=== PATIENT | female | born 1950 | race Caucasian/White ===

== ENCOUNTER 2016-10-17 12:27 | Emergency (ER) | payer MEDICARE ==
--- NOTE | 2016-10-17 14:13 | UC ---
Respiratory Complaint HPI - HPI Summary HPI Summary: 2 DAYS OF PRODUCTIVE COUGH, CHEST CONGESTION AND WHEEZE. DOES NOT FEEL PARTICULARLY SOB. STILL SMOKES. DOES NOT HAVE ANY INHALERS AT HOME. CONCERNED ABOUT PNA. NO FEVER. - History of Current Complaint Chief Complaint: UCRespiratory Stated Complaint: CHEST CONGESTION Time Seen by Provider: 10/17/16 14:03 Hx Obtained From: Patient Onset/Duration: Gradual Onset, Lasting Days, Still Present Timing: Constant Severity Initially: Moderate Severity Currently: Moderate Pain Intensity: 0 Pain Scale Used: 0-10 Numeric Character: Cough: Productive Aggravating Factors: Recumbent Position Alleviating Factors: Bronchodilator Associated Signs And Symptoms: Positive: Wheezing, Nasal Congestion. Negative: Fever, Chills, Pleuritic Chest Pain - Allergies/Home Medications Allergies/Adverse Reactions: Allergies Allergy/AdvReac Type Severity Reaction Status Date / Time No Known Allergies Allergy Verified 10/17/16 12:54 Home Medications: Home Medications Anastrozole (NF) [Arimidex (NF)] 1 mg PO DAILY 10/17/16 [History Confirmed 10/17] Aspirin EC Low Dose* [Ecotrin EC Low Dose 81 MG*] 81 mg PO DAILY 10/17/16 [ History Confirmed 10/17/16] Atorvastatin* [Lipitor 80 MG*] 80 mg PO DAILY 10/17/16 [History Confirmed ] Clopidogrel TAB* [Plavix TAB*] 40 mg PO DAILY 10/17/16 [History Confirmed ] Gabapentin CAP(*) [Neurontin 300 CAP(*)] 300 mg PO BID 10/17/16 [History Confirmed 10/17/16] Garlic 350 mg PO DAILY 10/17/16 [History Confirmed 10/17/16] Hydrochlorothiazide TAB* [Hydrodiuril TAB*] 12.5 mg PO DAILY 10/17/16 [History Confirmed 10/17/16] Insulin GLARGINE(*) [Lantus(*)] 40 units SUBCUT BEDTIME 10/17/16 [History Confirmed 10/17/16] Levothyroxine TAB* [Synthroid 100 MCG TAB*] 200 mcg PO DAILY 10/17/16 [History Confirmed 10/17/16] [place]-3 Fatty Acids [Fish Oil 1200 mg] 1 tab PO DAILY 10/17/16 [History Confirmed 10/17/16] Sitaglip/XodethlKI963/1000(NR) [Janumet XR 100/1000 (NF)] 1 tab PO DAILY [History Confirmed 10/17/16] amLODIPine TAB* [Norvasc 5 mg TAB*] 10 mg PO DAILY 10/17/16 [History Confirmed 10/17/16] metFORMIN* [Glucophage 1000 MG TAB *] 1,000 mg PO DAILY 10/17/16 [History Confirmed 10/17/16] PMH/Surg Hx/FS Hx/Imm Hx Endocrine History: Diabetes Cardiovascular History: Hypertension Cancer History: Breast Cancer Other Cancer History: THYROID CANCER - Surgical History Surgical History: Yes Surgery Procedure, Year, and Place: x2. Gallbladder removal - Family History Known Family History: Positive: Hypertension - Social History Alcohol Use: None Substance Use Type: None Smoking Status (MU): Heavy Every Day Tobacco Smoker Amount Used/How Often: 1/2ppd Review of Systems Constitutional: Negative ENT: Nasal Discharge Respiratory: Cough Cardiovascular: Negative Gastrointestinal: Negative All Other Systems Reviewed And Are Negative: Yes Physical Exam Triage Information Reviewed: Yes Appearance: Well-Appearing, No Pain Distress, Well-Nourished Vital Signs: Initial Vital Signs Temp 98.2 F 10/17/16 12:48 Pulse 115 10/17/16 12:48 Resp 18 10/17/16 12:48 BP 174/84 10/17/16 12:48 Pulse Ox 95 10/17/16 12:48 Vital Signs Reviewed: Yes Eyes: Positive: Conjunctiva Clear ENT: Positive: Hearing grossly normal, Pharynx normal, TMs normal Neck: Positive: Supple, Nontender, No Lymphadenopathy Respiratory: Positive: No respiratory distress, No accessory muscle use, Decreased breath sounds, Wheezing - DIFFUSELY Cardiovascular: Positive: Tachycardia Abdomen Description: Positive: Soft Musculoskeletal: Positive: No Edema Neurological: Positive: Alert Psychological: Positive: Age Appropriate Behavior Skin: Negative: rashes UC Diagnostic Evaluation - Laboratory O2 Sat by Pulse Oximetry: 95 Re-Evaluation - Re-Evaluation First Eval Re-Evaluation Time: 15:00 - MUCH IMPROVED AFTER DUONEB Change: Improved Respiratory Course/Dx - Differential Dx/Diagnosis Provider Diagnoses: BRONCHITIS WITH BRONCHOSPASM Discharge - Discharge Plan Condition: Stable Disposition: HOME Prescriptions: Albuterol 2.5MG/3ML (0.083%)* [Ventolin 2.5 MG/3 ML NEB.JEFFERY*] 2.5 mg INH Q4H PRN #1 box PRN Reason: Wheezing Albuterol HFA INHALER* [Ventolin HFA Inhaler*] 2 puff INH Q4H PRN #1 mdi PRN Reason: Shortness Of Breath Azithromycin [Azithromycin 500 MG TAB] 500 mg PO DAILY #5 tab Respiratory Therapy Supplies [Nebulizer Kit/Tubing/Mout] 1 kit .SEE ORDER . DIRECTED #1 kit predniSONE TAB* [Deltasone TAB*] 40 mg PO DAILY #10 tab Patient Education Materials: Acute Bronchitis (ED), Bronchospasm (ED) Referrals: Tiffani Echavarria MD [Primary Care Provider] - If Needed Additional Instructions: TAKE THE ANTIBIOTIC AND USE THE NEBS/INHALER. IF YOUR SYMPTOMS DO NOT IMPROVE FILL THE RX FOR THE PREDNISONE BUT BE AWARE THAT THIS WILL ELEVATE YOUR GLUCOSE. YOUR BLOOD PRESSURE WAS ELEVATED TODAY. THIS MAY BE DUE TO YOUR ACUTE CONDITION. MONITOR AND FOLLOW-UP WITH YOUR PCP WITHIN 4 WEEKS IF DESPITE YOUR MEDICATIONS IT HAS NOT RETURNED TO NORMAL.
[2016-10-17] MEDS ORDERED: Albuterol 2.5 MG/3 ML NEB.SOL* (0.083%) INH ONE (14:14)
[2016-10-17] MEDS ORDERED: Ipratropium 0.5MG/2.5ML NEB* 0.5 MG/2.5 ML NEB.SOLN INH ONE (14:14)
[2016-10-17 15:22] VITALS: BP 153/60
== END 2016-10-17 15:30 | disposition home or self-care (01) ==
LOC: UCCORT 12:27
DX: J20.9 Acute bronchitis, unspecified (principal); F17.210 Nicotine dependence, cigarettes, uncomplicated; E11.9 Type 2 diabetes mellitus without complications; Z79.4 Long term (current) use of insulin; I10 Essential (primary) hypertension
CPT/HCPCS: 99213; G0463; J7644